=== PATIENT | male | born 1960 | race Caucasian/White ===

== ENCOUNTER 2019-03-02 03:10 | Inpatient (IN) ==
--- NOTE | 2019-02-24 18:00 | EKG Report ---
Test Performed on : 02/24/2019 5:40:27 PM Test Reason : PAT Blood Pressure : / mmHG Vent. Rate : 082 BPM Atrial Rate : 082 BPM P-R Int : 176 ms QRS Dur : 098 ms QT Int : 390 ms P-R-T Axes : 040 018 025 degrees QTc Int : 455 ms Normal sinus rhythm. Normal ECG No previous ECGs available Confirmed by Asa MONTENEGRO, P.J.M ([id number]) on 02/24/2019 8:01:58 PM
[2019-02-24 18:21] LABS: URINE SOURCE CLEAN CATCH
[2019-02-24 18:30] LABS: BASO# 0.04 X1000 (0.0-0.2); BASO% 0.7 % (0.0-0.8); EOS# 0.37 X1000 (0.0-0.7); EOS% 6.4 % (0.0-10.0); HEMATOCRIT 31.2 % (42.0-52.0); HEMOGLOBIN 9.3 g/dL (14.0-18.0); LYMPH# 2.29 X1000 (1.2-3.4); LYMPH% 39.6 % (20.5-51.1); MCH 24.1 PG (27-31); MCHC 29.8 g/dL (33-37); MCV 80.8 FL (81-99); MONO# 0.42 X1000 (0.11-0.59); MONO% 7.3 % (1.7-9.3); MPV 10.8 FL (7.4-10.4); NEUT# 2.66 X1000 (1.4-6.5); PLT 273 X1000 (130-400); RBC 3.86 XMIL (4.7-6.1); RDW 17.5 % (11.5-14.5); WBC 5.78 X1000 (4.8-10.8)
[2019-02-24 18:31] LABS: BILIRUBIN URINE NEGATIVE (NEGATIVE); BLOOD URINE NEGATIVE (NEGATIVE); COLOR YELLOW; GLUCOSE URINE NEGATIVE (NEGATIVE); KETONE URINE NEGATIVE (NEGATIVE); LEUKOCYTES URINE NEGATIVE (NEGATIVE); NITRITE URINE NEGATIVE (NEGATIVE); PH URINE 5.5; PROTEIN URINE TRACE mg/dL (NEGATIVE); SP GRAVITY URINE 1.025; TURBIDITY URINE CLEAR (CLEAR); UROBILINOGEN URINE NORMAL (NORMAL)
[2019-02-24 18:36] LABS: UR EPITHELIAL CELLS <10 /HPF (<10); URINE BACTERIA NEGATIVE /HPF; URINE RBC <10 /HPF (<10); URINE WBC <10 /HPF (<10)
[2019-02-24 18:36] LABS: INR 1.05; PROTIME 13.8 Seconds (11.0-16.0)
[2019-02-24 18:37] LABS: PTT 28.1 Seconds (22.3-41.8)
[2019-02-24 18:48] LABS: AGAP 15; ALBUMIN 4.2 g/dL (3.5-5.0); BUN 17 mg/dL (8-22); CHLORIDE 103 mmol/L (98-107); COSMO 284; CREATININE 0.9 mg/dL (0.7-1.2); ESTIMATED GFR > 60; GLUCOSE 114 mg/dL (70-104); POTASSIUM 3.9 mmol/L (3.5-5.1); SODIUM 141 mmol/L (136-145); TCO2 23 mmol/L (25-35)
[2019-03-02] MEDS ORDERED: XYLOCAINE-MPF 2% ONE (06:13)
[2019-03-02] MEDS ORDERED: FENTANYL ONE (06:13)
[2019-03-02] MEDS ORDERED: VERSED ONE ×2 (06:13→07:03)
[2019-03-02] MEDS ORDERED: DIPRIVAN 1% ONE ×4 (06:13→08:41)
[2019-03-02] MEDS ORDERED: QUELICIN (DOSE) ONE (06:14)
[2019-03-02] MEDS ORDERED: DURAMORPH ONE (06:18)
[2019-03-02] MEDS ORDERED: TORADOL ONE (06:18)
[2019-03-02] MEDS ORDERED: MARCAINE 0.25% PF ONE (06:18)
[2019-03-02] MEDS ORDERED: EXPAREL 1.3% ONE (06:19)
[2019-03-02] MEDS ORDERED: CYKLOKAPRON 1,000 MG/NS 1,000 MG/100 ML IVPB ONE (06:19)
[2019-03-02] MEDS ORDERED: SODIUM CHLORIDE 0.9% ONE (06:19)
[2019-03-02] MEDS ORDERED: COLACE ONE (06:27)
[2019-03-02] MEDS ORDERED: REGLAN ONE (06:27)
[2019-03-02] MEDS ORDERED: PEPCID ONE (06:27)
[2019-03-02] MEDS ORDERED: LYRICA ONE (06:28)
[2019-03-02] MEDS ORDERED: CELEBREX ONE (06:28)
[2019-03-02] MEDS ORDERED: KEFZOL 1 GM/D5W 2 GM/100 ML IVPB ONE (06:28)
[2019-03-02] MEDS ORDERED: LR 1,000 ML ONE (06:28)
[2019-03-02 08:15] LABS: URINE SOURCE CATH
[2019-03-02 08:20] LABS: BILIRUBIN URINE NEGATIVE (NEGATIVE); BLOOD URINE NEGATIVE (NEGATIVE); COLOR YELLOW; GLUCOSE URINE NEGATIVE (NEGATIVE); KETONE URINE NEGATIVE (NEGATIVE); LEUKOCYTES URINE NEGATIVE (NEGATIVE); NITRITE URINE NEGATIVE (NEGATIVE); PROTEIN URINE NEGATIVE (NEGATIVE); TURBIDITY URINE CLEAR (CLEAR); UROBILINOGEN URINE NORMAL (NORMAL)
[2019-03-02 08:22] LABS: UR EPITHELIAL CELLS <10 /HPF (<10); URINE BACTERIA NEGATIVE /HPF; URINE RBC <10 /HPF (<10); URINE WBC <10 /HPF (<10)
[2019-03-02] MEDS ORDERED: EPHEDRINE ONE (08:23)
[2019-03-02] MEDS ORDERED: ZOFRAN ONE ×2 (08:33→10:01)
[2019-03-02] MEDS ORDERED: DECADRON ONE (08:33)
[2019-03-02] MEDS ORDERED: OFIRMEV 1000 MG/ISOTONIC SOLN 1,000 MG/100 ML BOTTLE ONE (08:33)
[2019-03-02] MEDS: DILAUDID ONE ×4 (09:40→09:59)
[2019-03-02] MEDS ORDERED: NS 1,000 ML ONE (09:51)
[2019-03-02] MEDS ORDERED: MORPHINE IV PRN (10:00)
[2019-03-02] MEDS ORDERED: OXY IR PO PRN (10:00)
[2019-03-02] MEDS ORDERED: OXY IR ONE (10:13)
[2019-03-02] MEDS ORDERED: CYKLOKAPRON 1,000 MG in NS 100 ML IV ONE (13:35)
[2019-03-02] MEDS: OXY IR PO PRN ×4 (13:40→23:06)
[2019-03-02] MEDS: BENADRYL PO PRN ×3 (13:40→22:35)
[2019-03-02] MEDS: ZOFRAN IV PRN ×2 (15:10→21:54)
[2019-03-02] MEDS: TYLENOL PO SCH ×2 (15:11→21:28)
[2019-03-02] MEDS: ULTRAM PO SCH ×2 (15:11→21:27)
[2019-03-02] MEDS: NS 1,000 ML IV SCH ×2 (15:11→21:27)
--- NOTE | 2019-03-02 15:13 | OPERATIVE NOTE ---
PROCEDURE DATE: 03/02/2019 PREOPERATIVE DIAGNOSIS: Degenerative joint disease, right hip. POSTOPERATIVE DIAGNOSIS: Degenerative joint disease, right hip. PROCEDURE PERFORMED: Right anterior hip replacement. SURGEON: Ainsley Starr MD. BOILER REPAIRMAN: TAVIA Gabriel. Mr. Moser was necessary for proper retraction and manipulation during the case. ANESTHESIA: Spinal. COMPLICATIONS: None. PROCEDURE IN DETAIL: This is a 58-year-old male with end-stage DJD about the right hip who presents for surgical hip replacement. Risks, benefits, and no guarantees were discussed, and he is willing to proceed. He was taken to the operating room and satisfactory anesthesia obtained. The right hip was prepped and draped in the usual sterile fashion. He was placed on the [place] table. A time-out was taken to confirm operative site, procedure, and patient. An anterior approach to the right hip was undertaken with an incision starting 1 cm lateral and distal to the anterior-superior iliac spine. Dissection was carried down through the superficial fascia to the tensor. The tensor was split in line with the incision and blunt dissection along the inner membrane of the tensor undertaken down the anterior hip capsule. Cobra retractor was placed on the superior and inferior aspects of the femoral neck, and a capsulotomy incision made to expose the hip joint. The C-arm was used to reference leg lengths prior to osteotomy of the femoral neck to establish leg lengths. It was roughly 1 cm short preoperatively on leg lengths due to erosion of the acetabular head. Femoral neck osteotomy was made roughly 8 mm above the lesser trochanter and the femoral head removed. A very small Cobra retractor was carefully placed directly on the anterior acetabular bone to protect the anterior neurovascular structures. This was carefully placed under direct vision. Sequential reaming of the acetabulum was undertaken up to a 55 reamer. A [employer]uy [place] DuoFix SAUNDERS coated 56 outer diameter cup was then impacted in the acetabulum with secure fixation in roughly 45 degrees of abduction and 15 degrees of anteversion. A 25 length screw was placed in the 12 o'clock position of the cup, followed by a 0 degree, 36 mm inner diameter polyethylene bearing. The bearing-cup interface and cup-bone interface were checked, and noted to be stable. Traction was released off the leg, and the hip extended and externally rotated using the [place] table to facilitate broaching of the proximal femur. Sequential broaching up to a size 8 Actis stem was undertaken with good axial and rotational stability. Trial with both standard and high offset collars revealed best offset and temple of leg length and stability with a high offset collar and a +5 neck length. The trial stem was removed and a Actis collared size 8 stem impacted in the proximal femur with secure axial and rotational stability. A 36 mm ceramic head with a +5 neck length was impacted onto this and the hip reduced. C-arm was used to verify accurate hip replacement as well as temple of leg lengths with slight lengthening to accommodate for the preop deformity. The stability was assessed by flexing the hip and internally rotating it without any posterior instability and extending the hip to the full or externally rotator roughly 75 degrees without anterior instability. The incision was then copiously irrigated with irrigant. A Hemovac drain was placed. The joint capsule and subcutaneous were injected with Exparel for pain management. Skin incision and surgical incisions were closed with a running V-Loc on the fascia of the tensor, 2-0 Vicryl in the subcutaneous, and skin cam on the skin edges. Sterile dressings were applied. He was recovered from anesthesia and transferred to the recovery room in stable condition. No intraoperative complications were noted. Instrument count and sponge count were correct at the time of closure. cc: Fahad Starr MD
[2019-03-02] MEDS: KEFZOL 2 GM/D5W 2 GM/50 ML IVPB IV SCH ×2 (15:32→23:06)
[2019-03-02] MEDS ORDERED: CODEINE PO SCH (17:00)
[2019-03-02] MEDS ORDERED: PNEUMOVAX 23 IM ONE (17:45)
[2019-03-02] MEDS: WELLBUTRIN PO SCH (19:40)
[2019-03-02] MEDS: AVAPRO PO SCH (19:40)
[2019-03-02] MEDS: NORVASC PO SCH (19:40)
[2019-03-02] MEDS: CYMBALTA PO SCH (19:41)
--- NOTE | 2019-03-02 20:32 | ORTHOPAEDICS PROGRESS NOTE ---
DATE: 03/02/2019 SUBJECTIVE DATA: Mr. Amador is seen on postop day 0 of his right total hip arthroplasty. He reports he is doing well at this time. He states his pain is 0/10. He reports he has been up walking by the nurse and desk, and around the hallway without much trouble. OBJECTIVE DATA: He has good sensation in the right lower extremity. The bandages are clean and dry. There is negative Homans sign. The patient is able to bend the knee without difficulty. The patient can flex his quadriceps muscles without much difficulty. There is good capillary refill in the toes. There are good pedal pulses. ASSESSMENT: 1. Degenerative joint disease, right hip. 2. Opioid dependence. PLAN: We will plan to hopefully discharge Mr. Amador tomorrow. We will check back on him in the morning and see how he is doing. We will get him a referral for a pain management physician or Suboxone clinic per his choice. Dictated by TAVIA Gabriel for Fahad Starr MD cc: TAVIA Gabriel MD
[2019-03-02] MEDS: NEURONTIN PO SCH (21:28)
[2019-03-02] MEDS: COREG PO SCH (21:28)
[2019-03-02] MEDS: CELEBREX PO SCH (21:29)
[2019-03-02] MEDS: PERIDEX MT SCH (21:29)
[2019-03-02] MEDS: COLACE PO SCH (21:29)
[2019-03-02] MEDS: MORPHINE IV PRN (22:36)
[2019-03-03] MEDS: MORPHINE IV PRN ×7 (00:25→18:16)
[2019-03-03] MEDS: NS 1,000 ML IV SCH (00:52)
[2019-03-03] MEDS: OXY IR PO PRN ×5 (01:56→14:26)
[2019-03-03] MEDS: BENADRYL PO PRN (03:13)
[2019-03-03] MEDS: TYLENOL PO SCH ×2 (03:13→08:13)
[2019-03-03] MEDS: ULTRAM PO SCH ×3 (03:14→16:35)
[2019-03-03] MEDS: ZOFRAN IV PRN ×3 (03:15→16:35)
[2019-03-03] MEDS ORDERED: FLU VACCINE IM ONE (06:00)
[2019-03-03 07:37] LABS: HEMATOCRIT 20.8 % (42.0-52.0); HEMOGLOBIN 6.3 g/dL (14.0-18.0)
[2019-03-03 07:53] LABS: AGAP 12; BUN 13 mg/dL (8-22); CALCIUM 7.8 mg/dL (8.8-10.2); CHLORIDE 103 mmol/L (98-107); COSMO 274; CREATININE 1.2 mg/dL (0.7-1.2); ESTIMATED GFR > 60; GLUCOSE 101 mg/dL (70-104); POTASSIUM 4.2 mmol/L (3.5-5.1); SODIUM 137 mmol/L (136-145); TCO2 22 mmol/L (25-35)
[2019-03-03] MEDS: PERIDEX MT SCH (08:10)
[2019-03-03] MEDS: COLACE PO SCH (08:11)
[2019-03-03] MEDS: CELEBREX PO SCH (08:11)
[2019-03-03] MEDS: WELLBUTRIN PO SCH (08:11)
[2019-03-03] MEDS: CYMBALTA PO SCH (08:11)
[2019-03-03] MEDS: NEURONTIN PO SCH (08:12)
[2019-03-03] MEDS: COREG PO SCH (08:12)
[2019-03-03] MEDS: NORVASC PO SCH (08:13)
[2019-03-03] MEDS: AVAPRO PO SCH (08:13)
[2019-03-03] MEDS ORDERED: ASPIRIN PO SCH (09:00)
[2019-03-03] MEDS ORDERED: PEPCID PO SCH (09:00)
[2019-03-03 09:55] LABS: HEMATOCRIT 20.8 % (42.0-52.0); HEMOGLOBIN 6.2 g/dL (14.0-18.0)
[2019-03-03] MEDS ORDERED: NS 500 ML IV ONE (10:00)
[2019-03-03] MEDS ORDERED: TYLENOL PO PRN (11:19)
--- NOTE | 2019-03-03 14:12 | ORTHOPAEDICS PROGRESS NOTE ---
DATE: 03/03/2019 SUBJECTIVE DATA: Mr. Amador is seen postop day 1 of his right total hip arthroplasty. He reports that he has been doing well, but has had some dizziness today. He reports some weakness as well. He states his pain has started to increase to a 6/10 today. OBJECTIVE DATA: He has good sensation, right lower extremity. The patient has good range of motion at the knee and hip. There are good pedal pulses. There is good capillary refill in the toes. His bandages are clean and dry at this time. Vital signs have been within normal limits. CURRENT LABORATORY DATA: Hemoglobin and hematocrit 6.3 and 20.8. ASSESSMENT: Anemia, opioid dependence, degenerative joint disease of right hip with anterior total hip replacement. PLAN: Will plan to give Mr. Amador 2 units of blood today. If his blood stabilizes this evening, will likely discharge him home. We have went ahead and written him prescriptions for Percocet 10 for pain, and notified him that if that does not control his pain, then he will need to see Pain Management. We have also placed him on Bactrim DS twice daily for 10 days, and given him a prescription for Phenergan in case he gets nauseated. Will place him on aspirin 325 daily for DVT prophylaxis. Will check back on him later and see how he is doing. Dictated by TAVIA Gabriel for Fahad Starr MD cc: TAVIA Gabriel MD
[2019-03-03 15:19] VITALS: BP 107/47
[2019-03-03 18:05] LABS: HEMOGLOBIN 7.7 g/dL (14.0-18.0)
[2019-03-03] MEDS ORDERED: PRILOSEC PO SCH (21:00)
== END 2019-03-03 18:18 | disposition home health service (06) ==
LOC: SURHOLD 03:10 → 4N 08:01
PROVIDERS: ADMIT Orthopaedic Surgery Adult Reconstructive Orthopaedic Surgery; ATTEND Orthopaedic Surgery Adult Reconstructive Orthopaedic Surgery